=== PATIENT | female | born 1955 | race Caucasian/White ===

== ENCOUNTER 2018-04-04 08:36 | Day surgery (SDC) | payer OTHER | END 2018-04-04 13:25 | disposition home or self-care (01) | LOC: AMB-ENDOS 08:36 | DX: D12.4 Benign neoplasm of descending colon (principal) ==

== ENCOUNTER 2019-03-27 07:20 | Day surgery (SDC) | payer OTHER | END 2019-03-27 14:53 | disposition home or self-care (01) | LOC: AMB-ENDOS 07:20 | DX: D12.2 Benign neoplasm of ascending colon (principal); K60.1 Chronic anal fissure ==

== ENCOUNTER 2021-02-17 08:30 | Day surgery (SDC) | payer OTHER | END 2021-02-17 12:05 | disposition home or self-care (01) | LOC: AMB-ENDOS 08:30 | PROVIDERS: ATTEND Surgery | DX: D12.4 Benign neoplasm of descending colon (principal); D12.7 Benign neoplasm of rectosigmoid junction; D12.8 Benign neoplasm of rectum; K64.8 Other hemorrhoids; Z20.822 Contact with and (suspected) exposure to COVID-19 ==

== ENCOUNTER 2021-07-06 11:18 | Emergency (ER) | payer OTHER ==
[~2021-07-06] VITALS: Ht 149.9 cm; Wt 53.5 kg
[2021-07-06] MEDS ORDERED: FOLIC ACID1 MG PO (11:58)
[2021-07-06] MEDS ORDERED: ATORVASTATIN CA20 MG PO (11:58)
[2021-07-06] MEDS ORDERED: LOSARTAN POTAS100 MG PO (11:58)
[2021-07-06] MEDS ORDERED: LEVOTHYROXINE75 MCG PO (11:58)
[2021-07-06] MEDS ORDERED: B-121000 MC1 PO (11:59)
[2021-07-06] MEDS ORDERED: DILTIAZEM ER300 MG PO (11:59)
[2021-07-06] MEDS ORDERED: VITAMIN D3125 MC1 PO (11:59)
== END 2021-07-06 15:53 | disposition home or self-care (01) ==
LOC: ER 11:18
DX: N39.0 Urinary tract infection, site not specified (principal); R10.84 Generalized abdominal pain